=== PATIENT | female | born 1975 | race Hispanic/Latino ===

== ENCOUNTER 2020-09-01 09:15 | Emergency (ER) | payer SELFPAY ==
[~2020-09-01] VITALS: Ht 160 cm; Wt 109.8 kg
[2020-09-01] MEDS ORDERED: NAPROSYN500 MG PO (09:50)
[2020-09-01] MEDS ORDERED: CYCLOBENZAPRINE5 MG PO (09:50)
== END 2020-09-01 10:00 | disposition home or self-care (01) ==
LOC: FSED 09:50
DX: M79.602 Pain in left arm (principal); M79.18 Myalgia, other site; E03.9 Hypothyroidism, unspecified
CPT/HCPCS: 93005; 99282